=== PATIENT | female | born 1975 | race Caucasian/White ===

== ENCOUNTER → 2017-12-23 | Outpatient (CLI) | payer BC, OTHER ==
[~2017-12-23] MED LIST: IRON325 PO; LEVOTHYROXINE 0.15MG PO; VITAMIN B-12500 MCG PO; VITAMIN D1000 UNI1 PO; VITAMIN D3400 UNIT PO; ZYRTEC10 M5 PO
== END ==
LOC: MRI 09:11
DX: N63.12 Unspecified lump in the right breast, upper inner quadrant (principal); Z80.3 Family history of malignant neoplasm of breast

== ENCOUNTER → 2020-05-31 | Outpatient (CLI) | payer BC, OTHER | LOC: BC 10:59 | PROVIDERS: ATTEND Obstetrics & Gynecology | DX: Z12.31 Encounter for screening mammogram for malignant neoplasm of breast (principal) ==